=== PATIENT | female | born 1965 | race Caucasian/White ===

== ENCOUNTER 2019-05-06 11:32 | Day surgery (SDC) | payer OTHER ==
[~2019-05-06] VITALS: Ht 152.4 cm; Wt 71.9 kg
[2019-05-06] MEDS ORDERED: ANTIBIOTICS (12:08)
[2019-05-06] MEDS ORDERED: ATORVASTATIN (12:08)
[2019-05-06] MEDS ORDERED: VITAMIN D (12:08)
[2019-05-06 12:13] VITALS: Ht 152.4 cm; Wt 71.9 kg
[2019-05-06 12:43] VITALS: BP 114/58; PULSE 58; RESP 16
[2019-05-06 13:26] VITALS: BP 120/59; PULSE 61; RESP 19
[2019-05-06 13:56] VITALS: BP 120/59; PULSE 60; RESP 21
[2019-05-06] MEDS ORDERED: FENTAnyl 50 MCG/ML VIAL ONE (14:03)
[2019-05-06] MEDS ORDERED: MIDAZOLAM 1 MG/ML 2 ML INJ ONE ×2 (14:03)
== END 2019-05-06 14:05 | disposition home or self-care (01) ==
LOC: GIL 11:32
PROVIDERS: ATTEND Internal Medicine Gastroenterology
DX: K92.1 Melena (principal); K64.8 Other hemorrhoids
CPT/HCPCS: 45378; 84703; J2250; J3010; Z7610